=== PATIENT | female | born 1930 | race Hispanic/Latino ===

== ENCOUNTER 2019-11-28 18:04 | Emergency (ER) | payer OTHER ==
[2019-11-28 19:47] LABS: Absolute Lymphocytes (CBC) 2.6 K/uL (0.7-4.9); Basophils % 0.3 % (0-1.3); Hematocrit 27.7 % (36.0-45.0); Lymphocytes % 14.9 % (15.3-44.8); MPV 8.7 fL (7.6-11.3); RBC Red Blood Cell Count 3.08 M/uL (3.86-4.86)
[2019-11-28 19:53] LABS: Protime INR 1.1
--- NOTE | 2019-11-28 20:03 | RAD REPORT ---
EXAM DESCRIPTION: CT - Abdomen Pelvis W Contrast - 11/28/2019 7:45 pm CLINICAL HISTORY: Abdominal pain COMPARISON: none. TECHNIQUE: Computed axial tomography of the abdomen pelvis was obtained. 100 cc Isovue-300 was admin istered intravenously. Oral contrast was not requested which limits evaluation of bowel. All CT scans are performed using dose optimization technique as appropriate and may include automated exposure control or mA/KV adjustment according to patient size. FINDINGS: Infrarenal abdominal aortic aneurysm with AP diameter of 3.3 centimeters The liver, spleen, pancreas, adrenal and kidneys appear unremarkable. Diverticula stem from the colon. There is minimal stranding adjacent to the distal descending and pro ximal sigmoid colon. 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 3.3 centimeter infrarenal abdominal aortic aneurysm A moderate compression fracture involves the L5 vertebral body. The age is indeterminate
--- NOTE | 2019-11-28 20:03 | RAD REPORT ---
EXAM DESCRIPTION: Ab Single View11/28/2019 7:13 pm CLINICAL HISTORY: Leukocytosis/hypertension COMPARISON: 2016 FINDINGS: The lungs appear clear of acute infiltrate. The heart is borderline enlarged IMPRESSION: No acute abnormalities displayed
[2019-11-28 20:07] LABS: ALT/SGPT 43 U/L (12-78); AST/SGOT 21 U/L (15-37); Albumin 2.7 g/dL (3.4-5.0); Alkaline Phosphatase 178 U/L (45-117); Amylase 59 U/L (25-115); BUN Blood Urea Nitrogen 35 mg/dL (7-18); Bicarbonate 26 mmol/L (21-32); Bilirubin Direct 0.3 mg/dL (0-0.2); Bilirubin Total 0.6 mg/dL (0.2-1.0); CKMB Creatine Kinase MB < 1.0 ng/mL (0.3-3.6); Creatine Phosphokinase 24 U/L (26-192); Glucose Level 121 mg/dL (74-106); Lipase 62 U/L (73-393); Potassium 4.2 mmol/L (3.5-5.1); Protein, Total 7.9 g/dL (6.4-8.2); Sodium Level 137 mmol/L (136-145); Troponin (Emerg Dept Use Only) < 0.02 ng/mL (0.0-0.045)
[2019-11-28 20:11] LABS: Blood Morphology Comment NOT SEEN (NOT SEEN); Platelet Estimate INCR
[2019-11-28] MEDS ORDERED: METRONIDAZOLE 500mg IVPB 500 MG/100 ML BAG IV ONE (21:00)
[2019-11-28] MEDS ORDERED: levoFLOXacin 500 MG TAB ONE (21:00)
--- NOTE | 2019-11-28 21:27 | ER ---
Nurse's Notes [facility] Name: Dara Henriquez Age: 89 yrs Sex: Female : 1930 Arrival Date: 11/28/2019 Time: 18:07 Bed 18 Private MD: Tarun Xie B Diagnosis: Diverticulitis of intestine, part unspecified, without perforation or abscess without bleeding;Abdominal aortic aneurysm, without rupture Presentation: 11/27 18:27 Chief complaint: Patient states: Left groin pain for 3 days. + decreased appetite. No ll1 fever. Dr. Xie sent her for blood work, WBC 20.9 and sent in to ER for eval. Coronavirus screen: Client denies travel out of the [place] in the last 14 days. At this time, the client does not indicate any symptoms associated with coronavirus-19. Ebola Screen: Patient denies travel to an Ebola-affected area in the 21 days before illness onset. Initial Sepsis Screen: Does the patient meet any 2 criteria? HR > 90 bpm. Risk Assessment: Do you want to hurt yourself or someone else? Patient reports no desire to harm self or others. Onset of symptoms was November 25, 2019. 18:27 Method Of Arrival: Wheelchair ll1 18:27 Acuity: CATALIAN 3 ll1 19:30 Initial Sepsis Screen: Does the patient have a suspected source of infection? Yes: wh Acute abdominal pain. Historical: - Allergies: 18:31 No Known Drug Allergies; ll1 - PMHx: 18:31 TIA; Hypertension; GERD; High Cholesterol; ll1 - PSHx: 18:31 Cholecystectomy; Knee surgery; Hysterectomy; ll1 - Immunization history:: Flu vaccine is up to date. - Social history:: Smoking status: Patient denies any tobacco usage or history of. Patient/guardian denies using alcohol, street drugs. Screenin:45 Abuse screen: Denies threats or abuse. Denies injuries from another. Nutritional jr10 screening: No deficits noted. Tuberculosis screening: No symptoms or risk factors identified. Fall Risk Fall in past 12 months (25 points). Secondary diagnosis (15 points) impaired mobility, IV access (20 points). Ambulatory Aid- None/Bed Rest/Nurse Assist (0 pts). Gait- Weak (10 pts.). Mental Status- Oriented to own ability (0 pts). Assessment: 18:45 General: Appears in no apparent distress. Behavior is calm, cooperative, appropriate jr10 for age. Pain: Complains of pain in groin. Neuro: No deficits noted. Cardiovascular: No deficits noted. Respiratory: No deficits noted. Airway is patent Respiratory effort is even, unlabored, Respiratory pattern is regular, symmetrical. GI: No deficits noted. Abdomen is round non-distended, Abd is soft and non tender X 4 quads. Reports decreased appetite Patient currently denies diarrhea, intolerance of fluids, intolerance of food, nausea, vomiting. : No deficits noted. No signs and/or symptoms were reported regarding the genitourinary system. EENT: No deficits noted. No signs and/or symptoms were reported regarding the EENT system. Derm: No deficits noted. No signs and/or symptoms reported regarding the dermatologic system. Musculoskeletal: Reports weakness in generalized. 19:30 General: Appears in no apparent distress. Behavior is calm, cooperative, appropriate wh for age. Pain: Complains of pain in left lower quadrant Pain does not radiate. Neuro: Level of Consciousness is awake, alert, obeys commands, Oriented to person, place, time, situation, Appropriate for age. Cardiovascular: Heart tones S1 S2. Respiratory: Airway is patent Respiratory pattern is regular, symmetrical, Breath sounds are clear bilaterally. GI: Abdomen is round non-distended, Abd is soft and non tender Reports lower abdominal pain. : No signs and/or symptoms were reported regarding the genitourinary system. EENT: No signs and/or symptoms were reported regarding the EENT system. Derm: Skin is intact, is healthy with good turgor, Skin is pink, warm \T\ dry. normal. Musculoskeletal: Circulation, motion, and sensation intact. 20:35 Reassessment: No changes from previously documented assessment. Patient and/or family wh updated on plan of care and expected duration. Pain level reassessed. Patient is alert, oriented x 3, equal unlabored respirations, skin warm/dry/pink. 21:45 Reassessment: Patient appears in no apparent distress at this time. Patient and/or wh family updated on plan of care and expected duration. Pain level reassessed. Patient is alert, oriented x 3, equal unlabored respirations, skin warm/dry/pink. Vital Signs: 18:27 BP 112 / 62; Pulse 99; Resp 18; Temp 97.9; Pulse Ox 100% ; Weight 87.09 kg; Pain 8/10; ll1 20:00 BP 118 / 72; Pulse 89; Resp 18; Pulse Ox 100% on R/A; wh 21:30 BP 120 / 69; Pulse 94; Resp 18; Pulse Ox 99% on R/A; ED Course: 18:07 Patient arrived in ED. mr 18:08 Tarun Xie MD is Private Physician. mr 18:30 Triage completed. ll1 18:32 Arm band placed on. ll1 18:34 Haydee Maldonado, MELQUIADES is Primary Nurse. jr10 18:43 Ahmet Guevara MD is Attending Physician. kdr 18:45 Patient has correct armband on for positive identification. Bed in low position. Call jr10 light in reach. Side rails up X2. school bus monitor on. Pulse ox on. NIBP on. 18:45 Inserted saline lock: 20 gauge in right forearm, using aseptic technique. IV is patent, jr10 is intact, with good blood return, Flushed. 19:11 Report given to Melquiades Schwab. jr10 19:14 Chest Single View XRAY In Process Unspecified. EDMS 19:14 No provider procedures requiring assistance completed. jr10 19:15 Attending Physician role handed off by Ahmet Guevara MD tw4 19:15 Levon Dial MD is Attending Physician. tw4 19:45 CT Abd/Pelvis - IV Contrast Only In Process Unspecified. EDMS 21:25 Tarun Xie MD is Referral Physician. tw4 22:01 IV discontinued, intact, bleeding controlled, No redness/swelling at site. wh Administered Medications: 21:04 Drug: Flagyl 500 mg Volume: 100 ml; Route: IVPB; Rate: 200 ml/hr; Infused Over: 30 wh mins; Site: right forearm; 22:02 Follow up: Response: No adverse reaction; IV Status: Completed infusion 21:04 Drug: LevaQUIN 500 mg Route: PO; 22:02 Follow up: Response: No adverse reaction 21:41 Drug: Tylenol 1000 mg Route: PO; wh 22:02 Follow up: Response: No adverse reaction; Pain is decreased Outcome: 21:26 Discharge ordered by . tw4 22:01 Discharged to home via wheelchair, with family. wh 22:01 Condition: stable 22:01 Discharge instructions given to patient, family, Instructed on discharge instructions, follow up and referral plans. no drinking with medication, no driving heavy equipment, medication usage, POC Demonstrated understanding of instructions, follow-up care, medications, POC Prescriptions given X 3. 22:02 Patient left the ED. Signatures: Dispatcher [employer] EDMS Ahmet Guevara MD MD kdr Rivera, Gisella mr Mikaela, Zaheer Levon Dial MD MD tw4 Omid Pillai RN RN ll1 Haydee Maldonado RN RN jr10 Corrections: (The following items were deleted from the chart) 20:57 18:27 Chief complaint: Patient states: Left groin pain for 3 days. = decreased ll1 appetite. No fever. Dr. Xie sent her for blood work, WBC 20.9 and sent in to ER for eval. ll1
--- NOTE | 2019-11-28 21:27 | EDPHYS ---
Physician Documentation [facility] Name: Dara Henriquez Age: 89 yrs Sex: Female : 1930 Arrival Date: 11/28/2019 Time: 18:07 Bed 18 Private MD: Tarun Xie B ED Physician Levon Dial HPI: 11/27 19:51 This 89 yrs old Female presents to ER via Wheelchair with complaints of tw4 Abnormal Lab Results. 19:51 The patient presents with abdominal pain. Onset: The symptoms/episode began/occurred 3 tw4 day(s) ago. The symptoms do not radiate. Associated signs and symptoms: none. Modifying factors: The symptoms are alleviated by nothing, the symptoms are aggravated by nothing. Severity of pain: At its worst the pain was moderate. The patient has not experienced similar symptoms in the past. Historical: - Allergies: 18:31 No Known Drug Allergies; ll1 - PMHx: 18:31 TIA; Hypertension; GERD; High Cholesterol; ll1 - PSHx: 18:31 Cholecystectomy; Knee surgery; Hysterectomy; ll1 - Immunization history:: Flu vaccine is up to date. - Social history:: Smoking status: Patient denies any tobacco usage or history of. Patient/guardian denies using alcohol, street drugs. ROS: 19:51 Constitutional: Negative for fever, chills, and weight loss, Eyes: Negative for injury, tw4 pain, redness, and discharge, Cardiovascular: Negative for chest pain, palpitations, and edema, Respiratory: Negative for shortness of breath, cough, wheezing, and pleuritic chest pain, Back: Negative for injury and pain, MS/Extremity: Negative for injury and deformity, Skin: Negative for injury, rash, and discoloration, Neuro: Negative for headache, weakness, numbness, tingling, and seizure. 19:51 Abdomen/GI: Positive for abdominal pain, Negative for nausea and vomiting, nausea, vomiting, and diarrhea, nausea, vomiting, anorexia, dysphagia, hematemesis, black/tarry stool, rectal bleeding, bowel incontinence. Exam: 19:51 Constitutional: This is a well developed, well nourished patient who is awake, alert, tw4 and in no acute distress. Head/Face: Normocephalic, atraumatic. Chest/axilla: Normal chest wall appearance and motion. Nontender with no deformity. No lesions are appreciated. Cardiovascular: Regular rate and rhythm with a normal S1 and S2. No gallops, murmurs, or rubs. Normal PMI, no JVD. No pulse deficits. Respiratory: Lungs have equal breath sounds bilaterally, clear to auscultation and percussion. No rales, rhonchi or wheezes noted. No increased work of breathing, no retractions or nasal flaring. 19:51 Skin: Warm, dry with normal turgor. Normal color with no rashes, no lesions, and no evidence of cellulitis. MS/ Extremity: Pulses equal, no cyanosis. Neurovascular intact. Full, normal range of motion. Neuro: Awake and alert, GCS 15, oriented to person, place, time, and situation. Cranial nerves II-XII grossly intact. Motor strength 5/5 in all extremities. Sensory grossly intact. Cerebellar exam normal. Normal gait. 19:51 Abdomen/GI: Inspection: abdomen appears normal, Bowel sounds: normal, Palpation: moderate abdominal tenderness, in the left lower quadrant. Vital Signs: 18:27 BP 112 / 62; Pulse 99; Resp 18; Temp 97.9; Pulse Ox 100% ; Weight 87.09 kg; Pain 8/10; ll1 20:00 BP 118 / 72; Pulse 89; Resp 18; Pulse Ox 100% on R/A; wh 21:30 BP 120 / 69; Pulse 94; Resp 18; Pulse Ox 99% on R/A; MDM: 19:18 Patient medically screened. tw4 11/28 04:35 Data reviewed: vital signs, nurses notes. Data reviewed: lab test result(s), CBC, tw4 electrolytes, hepatic panel, radiologic studies, CT scan. Data interpreted: Pulse oximetry: Interpretation: normal. Counseling: I had a detailed discussion with the patient and/or guardian regarding: the historical points, exam findings, and any diagnostic results supporting the discharge/admit diagnosis, lab results, radiology results. 11/27 18:44 Order name: Amylase, Serum; Complete Time: : kdr 11/27 20:21 Interpretation: Within normal limits: GEETHA 59. tw4 11/27 18:44 Order name: Basic Metabolic Panel; Complete Time: : kdr 11/27 20:18 Interpretation: Normal except: GLUC 121; BUN 35; GFR 39. [facility] 11/27 18:44 Order name: Blood Culture Adult (2) [facility] 11/27 18:44 Order name: CBC with Diff; Complete Time: 20:18 [facility] 11/27 20:19 Interpretation: Normal except: WBC 17.7; RBC 3.08; HGB 9.0; HCT 27.7; PLT 491; NEUT A tw4 13.6; LYM% 14.9; DURGA% 76.9. 11/27 18:44 Order name: Ckmb; Complete Time: 20:18 [facility] 11/27 20:21 Interpretation: Within normal limits: CKMB < 1.0. [facility] 11/27 18:44 Order name: CPK; Complete Time: 20:18 [facility] 11/27 20:19 Interpretation: Abnormal: CPK 24. [facility] 11/27 18:44 Order name: Lactate; Complete Time: 20:18 [facility] 11/27 20:21 Interpretation: Within normal limits: LAC 1.3. [facility] 11/27 18:44 Order name: LFT's; Complete Time: 20:18 [facility] 11/27 20:20 Interpretation: Normal except: BILID 0.3; ALB 2.7; GLOB 5.2; A/G 0.5; ALK 178. [facility] 11/27 18:44 Order name: Lipase; Complete Time: 20:18 [facility] 11/27 20:20 Interpretation: Abnormal: LIP 62. [facility] 11/27 18:44 Order name: Procalcitonin [facility] 11/27 18:44 Order name: Protime (+inr); Complete Time: 20:18 [facility] 11/27 20:20 Interpretation: Normal except: PT 12.9. [facility] 11/27 18:44 Order name: Ptt, Activated; Complete Time: 20:18 [facility] 11/27 20:21 Interpretation: Within normal limits: PTT 30.6. [facility] 11/27 18:44 Order name: Troponin (emerg Dept Use Only); Complete Time: 20:18 [facility] 11/27 20:21 Interpretation: Within normal limits: TROPED < 0.02. [facility] 11/27 18:44 Order name: Chest Single View XRAY; Complete Time: 20:18 [facility] 11/27 18:44 Order name: Accucheck; Complete Time: 19:35 [facility] 11/27 18:44 Order name: Cardiac monitoring; Complete Time: 19:09 [facility] 11/27 18:44 Order name: EKG - Nurse/Tech; Complete Time: 19:35 kdr 11/27 18:44 Order name: IV Saline Lock - Large Bore; Complete Time: 19:09 kdr 11/27 18:44 Order name: Labs collected and sent; Complete Time: 19:35 kdr 11/27 18:44 Order name: O2 Per Protocol; Complete Time: 19:09 kdr 11/27 18:44 Order name: O2 Sat Monitoring; Complete Time: 19:09 kdr 11/27 19:27 Order name: CT Abd/Pelvis - IV Contrast Only; Complete Time: 20:18 tw4 11/27 20:22 Interpretation: Abnormal. tw4 11/27 19:46 Order name: Glucose, Ancillary Testing; Complete Time: 20:18 EDMS 11/27 19:51 Order name: Manual Differential; Complete Time: 20:18 EDMS 11/27 20:21 Interpretation: Normal except: BANDS [F] 2. tw4 EC:49 Rate is 92 beats/min. Rhythm is regular. QRS [place] is Normal. FL interval is normal. QRS tw4 interval is normal. QT interval is normal. No Q waves. No ST changes noted. Clinical impression: Normal ECG. Interpreted by me. Reviewed by me. Administered Medications: 11/27 21:04 Drug: Flagyl 500 mg Volume: 100 ml; Route: IVPB; Rate: 200 ml/hr; Infused Over: 30 wh mins; Site: right forearm; 22:02 Follow up: Response: No adverse reaction; IV Status: Completed infusion 21:04 Drug: LevaQUIN 500 mg Route: PO; 22:02 Follow up: Response: No adverse reaction 21:41 Drug: Tylenol 1000 mg Route: PO; 22:02 Follow up: Response: No adverse reaction; Pain is decreased Disposition: 11/28/19 21:26 Discharged to Home. Impression: Diverticulitis of intestine, part unspecified, without perforation or abscess without bleeding, Abdominal aortic aneurysm, without rupture. - Condition is Stable. - Discharge Instructions: Abdominal Aortic Aneurysm, Diverticulitis. - Prescriptions for Flagyl 500 mg Oral Tablet - take 1 tablet by ORAL route every 12 hours for 7 days; 14 tablet. Levaquin 500 mg Oral Tablet - take 1 tablet by ORAL route once daily for 7 days; 7 tablet. Tramadol 50 mg Oral Tablet - take 1 tablet by ORAL route every 8 hours as needed; 12 tablet. - Medication Reconciliation Form, Thank You Letter, Antibiotic Education, Prescription Opioid Use form. - Follow up: Tarun Xie MD; When: Upon discharge from the Emergency Department; Reason: Recheck today's complaints, Continuance of care, Re-evaluation by your physician. - Problem is new. - Symptoms have improved. Signatures: Dispatcher [employer] EDMS Ahmet Guevara MD MD [facility] Zaheer Al Terrence, MD MD tw4 Omid Pillai, RN RN ll1 Corrections: (The following items were deleted from the chart) 22:02 21:26 11/28/2019 21:26 Discharged to Home. Impression: Diverticulitis of intestine, wh part unspecified, without perforation or abscess without bleeding; Abdominal aortic aneurysm, without rupture. Condition is Stable. Forms are Medication Reconciliation Form, Thank You Letter, Antibiotic Education, Prescription Opioid Use. Follow up: Tarun Xie; When: Upon discharge from the Emergency Department; Reason: Recheck today's complaints, Continuance of care, Re-evaluation by your physician. Problem is new. Symptoms have improved. tw4
[2019-11-28] MEDS ORDERED: ACETAMINOPHEN 500 MG TAB ONE (21:44)
--- NOTE | 2019-11-30 07:35 | EKG ---
Test Date: 2019-11-28 Test Time: 19:12:30 [employer] Electrician: MEASUREMENT RESULTS: Intervals: Rate: 92 ND: 168 QRSD: 78 QT: 378 QTc: 467 [place]: P: 22 ND: 168 QRS: 44 T: 44 INTERPRETIVE STATEMENTS: Normal sinus rhythm Normal ECG Compared to ECG 09/22/2014 18:18:28 Myocardial infarct finding no longer present Electronically Signed On 11-30-19 07:32:42 CDT by Marcos Ordoñez
== END 2019-11-28 22:02 | disposition home or self-care (01) ==
LOC: ER 18:04
DX: K57.92 Diverticulitis of intestine, part unspecified, without perforation or abscess without bleeding (principal); I71.4 Abdominal aortic aneurysm, without rupture; I10 Essential (primary) hypertension
CPT/HCPCS: 93005; 87040 ×2; 85025; 80048; 36415; 82150; 82550; 85610; 82565; 82947; 80076; 83605; 85730; 84484; 82553; 83690; 84145; 74177; 71045; Q9967; 96365; 99284